=== PATIENT | female | born 1970 ===

== ENCOUNTER 2017-10-21 02:17 | Emergency (ER) | payer BC, OTHER ==
[2017-10-21 02:30] VITALS: BP 125/74; PULSE 61; RESP 18; TEMP 98.5; O2SAT 99
[2017-10-21] MEDS ORDERED: Oxycodone/Acetaminophen 5/325 mg Tab PO ONE (02:44)
--- NOTE | 2017-10-21 02:53 | ED PDOC ---
Upper Extremity Pain/Injury Time Seen by Provider: 10/21/17 02:33 Chief Complaint (Nursing): Finger,Hand,&Wrist Chief Complaint (Provider): Right thumb injury History Per: Patient History/Exam Limitations: no limitations Onset/Duration Of Symptoms: Hrs Current Symptoms Are (Timing): Still Present Additional History Per: Patient Additional Complaint(s): 47yo female, comes to ER for evaluation of right thumb injury, stating she "jammed" it in a car door around 9PM last night. Patient states the finger was increasingly painful and she is concerned about the blood under her nail. She took 3 Advil prior to arrival with some relief. She denies any numbness or tingling in her finger. She has no other complaints. Past Medical History Reviewed: Historical Data, Nursing Documentation, Vital Signs Vital Signs: Last Vital Signs Temp 98.5 F 10/21/17 02:25 Pulse 61 10/21/17 02:25 Resp 18 10/21/17 02:25 BP 125/74 10/21/17 02:25 Pulse Ox 99 10/21/17 02:25 - Medical History PMH: No Chronic Diseases - Surgical History Surgical History: No Surg Hx - Family History Family History: States: No Known Family Hx - Allergies Allergies/Adverse Reactions: Allergies Allergy/AdvReac Type Severity Reaction Status Date / Time No Known Allergies Allergy Verified 10/21/17 02:25 Review of Systems ROS Statement: Except As Marked, All Systems Reviewed And Found Negative Musculoskeletal: Positive for: Hand Pain (right thumb injury) Neurological: Negative for: Numbness, Other (tingling) Physical Exam - Reviewed Nursing Documentation Reviewed: Yes Vital Signs Reviewed: Yes - Physical Exam Appears: Positive for: Non-toxic, No Acute Distress Pulses-Radial (R): 2+ Extremity: Positive for: Normal ROM (FROM of all digits on right hand), Tenderness (tenderness to distal phalanx right thumb), Swelling (swelling noted to distal phalanx on right thumb), Other (subungal hematoma noted to proximal 1/ 3 of nail on right humb; nail bed not affected. No laceration, no active bleeding.). Negative for: Deformity Neurologic/Psych: Positive for: Alert, Oriented. Negative for: Motor/Sensory Deficits - ECG O2 Sat by Pulse Oximetry: 99 (RA) Pulse Ox Interpretation: Normal Medical Decision Making Medical Decision Making: Impression: Right thumb injury Plan: * Percocet 1 tab PO * XR Right Thumb 0406 XR reviewed, shows no fractures or dislocations. Nail trephination performed, see procedure note. Scribe Attestation: Documented by Riya Neal, acting as a scribe for Irineo Hudson MD. Provider Scribe Attestation: All medical record entries made by the Scribe were at my direction and personally dictated by me. I have reviewed the chart and agree that the record accurately reflects my personal performance of the history, physical exam, medical decision making, and the department course for this patient. I have also personally directed, reviewed, and agree with the discharge instructions and disposition. Procedures - Time-Out Type of Procedure: Nail trepanation Site of Procedure: Right thumbnail Correct Patient: Yes Correct Procedure: Yes Physician Name: Irineo Hudson - Nail Trepanation Nail Trepanation Location: Right thumbnail Method of Drainage: nail cauterized Sterile Dressing Applied: Yes Finger Splint: Yes Progress: Verbal consent obtained from patient. Lidocaine 1% used for digital block of distal phalanx right thumb Trephination with electric cautery of right thumbnail performed. Procedure successful with blood discharge from trephination hole. Patient tolerated procedure well. Dressed in sterile pressure dressing. Disposition - Clinical Impression Clinical Impression: Finger sprain, Subungual hematoma - Patient ED Disposition Is Patient to be Admitted: No Counseled Patient/Family Regarding: Studies Performed, Diagnosis, Need For Followup - Disposition Referrals: Rachna Brink APN [Primary Care Provider] - Kishor Massey MD [Staff Provider] - Disposition: Routine/Home Disposition Time: 04:15 Condition: GOOD Additional Instructions: Take motrin for pain. Follow up with your [facility] in 2-3 days. Instructions: Finger Sprain (DC)
[2017-10-21] MEDS ORDERED: Oxycodone/Acetaminophen 5/325 mg Tab ONE (02:56)
[2017-10-21] MEDS ORDERED: Lidocaine 1% Inj (20ml) IJ ONE (03:04)
[2017-10-21] MEDS ORDERED: Lidocaine Hydrochloride 5 ML INJ ONE (03:12)
--- NOTE | 2017-10-21 09:01 | RAD ---
Date of service: 10/21/2017 PROCEDURE: Right Thumb radiographs. HISTORY: right thumb injury COMPARISON: None. TECHNIQUE: AP radiograph of the right hand, as well as spot oblique and lateral images of thumb were obtained. FINDINGS: RIGHT THUMB: Normal right thumb, without fracture or focal lesion. Remainder of the right hand (as seen on the AP view) grossly unremarkable. JOINTS: Normal. SOFT TISSUES: Normal. OTHER FINDINGS: None. IMPRESSION: Normal right thumb radiographs.
== END 2017-10-21 04:34 | disposition home or self-care (01) ==
LOC: H.ER 02:17
DX: S60.111A Contusion of right thumb with damage to nail, initial encounter (principal); W22.8XXA Striking against or struck by other objects, initial encounter; Y92.89 Other specified places as the place of occurrence of the external cause